=== PATIENT | female | born 1935 | race Caucasian/White ===

== ENCOUNTER 2017-03-23 10:17 | Emergency (ER) | payer MEDICARE, BC ==
[~2017-03-23] VITALS: Ht 157.5 cm; Wt 53.1 kg
[2017-03-23 10:20] VITALS: BP 122/56; PULSE 63; RESP 16; TEMP 97.7; O2SAT 97
[2017-03-23] MEDS ORDERED: CARV12.52 PO (10:50)
[2017-03-23] MEDS ORDERED: RAMI10CA PO (10:50)
[2017-03-23] MEDS ORDERED: FURO20TA PO (10:50)
[2017-03-23] MEDS ORDERED: ASPI-516 CHEW (10:50)
[2017-03-23] MEDS ORDERED: FAMO1TAB73 PO (10:50)
--- NOTE | 2017-03-23 11:31 | RADRPT ---
EXAM DATE/TIME: 03/23/2017 11:09 [place] COMPARISON: No previous studies available for comparison. INDICATIONS : Fall, right thumb pain. MEDICAL HISTORY : None. SURGICAL HISTORY : None. 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 Alignment anatomic. Fracture is not appreciated. CONCLUSION: Degenerative changes without fracture. Husam Mñuoz MD FACR on March 23, 2017 at 11:28 Board Certified Radiologist. This report was verified electronically.
--- NOTE | 2017-03-23 11:40 | PD ---
HPI Chief Complaint: Musculoskeletal Complaint Time Seen by Provider: 10:42 Travel History International Travel<30 days: No Contact w/Intl Traveler<30days: No Traveled to known affect area: No History of Present Illness HPI This is an 83-year-old female here with right thumb pain, swelling, ecchymosis after a trip and fall yesterday evening. Denies head injury or loss of consciousness. She reports decreased range of motion due to pain and swelling. Denies paresthesia or weakness of the digit. Symptoms severity is moderate. Aggravated by movement and relieved with rest. He denies any other injuries. No headache, neck pain, chest pain, shortness of breath, abdominal pain. PFSH Past Medical History Hx Anticoagulant Therapy: Yes (ASA 81MG DAILY) Congestive Heart Failure: Yes Hypertension: Yes Tetanus Vaccination: > 5 Years Influenza Vaccination: Yes ?: Not Menopausal: Yes Past Surgical History Cardiac Surgery: Yes (Defib) Eye Surgery: Yes Pacemaker: Yes (Defib) Social History Alcohol Use: No Tobacco Use: No Substance Use: No Allergies-Medications (Allergen,Severity, Reaction): Coded Allergies: No Known Allergies (Unverified , 03/23/17) Reported Meds & Prescriptions Reported Meds & Active Scripts Active Reported Pepcid (Famotidine) 40 Mg Tab 40 Mg PO HS Aspirin 81 Mg Chew 81 Mg CHEW DAILY Furosemide 20 Mg Tab 20 Mg PO DAILY Ramipril 10 Mg Cap 10 Mg PO DAILY Carvedilol 12.5 Mg Tab 12.5 Mg PO BID Review of Systems Except as stated in HPI: all other systems reviewed are Neg Physical Exam Narrative GENERAL: Alert and well-appearing 82-year-old female SKIN: Warm and dry. HEAD: Normocephalic. Atraumatic EYES: No injection or drainage. NECK: Supple, trachea midline. No cervical midline tenderness. CARDIOVASCULAR: Regular rate and rhythm RESPIRATORY: Breath sounds equal bilaterally. No accessory muscle use. GASTROINTESTINAL: Abdomen soft, non-tender, nondistended. MUSCULOSKELETAL: No cyanosis. Right upper extremity: Notable tenderness, swelling, ecchymosis to the entire right thumb. No deformity. There is a small abrasion to the nail fold medial aspect. No evidence of infection. Limited flexion due to swelling and pain. Normal sensation. Brisk cap refill. BACK: Nontender. No CVA tenderness. Data Data Last Documented VS Vital Signs Date Time Temp Pulse Resp B/P (MAP) Pulse Ox O2 Delivery O2 Flow Rate FiO2 03/23/17 10:20 97.7 63 16 122/56 (78) 97 Orders Orders Hand, Complete ([id number]) (03/23/17 ) Ed Discharge Order (03/23/17 11:40) Tetanus/Diphtheria Tox Adult (Tetanus/Di (03/23/17 11:45) Splint Or Brace Apply/Monitor (03/23/17 11:40) Fiberglass Thumb Spica Adult (03/23/17 ) MDM Medical Decision Making Medical Screen Exam Complete: Yes Emergency Medical Condition: Yes Differential Diagnosis Thumb fracture, sprain, dislocation Narrative Course This is an 83-year-old female here with right thumb pain, swelling, ecchymosis after a trip and fall yesterday evening. The digit is neurovascularly intact. She has a small abrasion to the lateral aspect of the nail. No evidence of infection. X-ray was negative for fracture and dislocation. Her tetanus immunization was updated. Finger splint applied. Wound care discussed. Patient is to follow up with her primary doctor and was also given a referral to hand surgeon should she have any complications. Diagnosis Primary Impression: Thumb sprain Qualified Codes: S63.601A - Unspecified sprain of right thumb, initial encounter Referrals: Lili Fabian MD Primary Care Physician Additional Instructions: Where the thumb splint daily for one week. Cleanse the wound with soap and water each day. Apply a thin layer of antibiotic ointment and redressed with a dry dressing. Tylenol or ibuprofen as needed for discomfort. Follow-up with her primary doctor for recheck. Disposition: 01 DISCHARGE HOME Condition: Stable Kavya Rodas Adam DREW Mar 23, 2017 11:40
[2017-03-23] MEDS ORDERED: TETANUS/DIPHTHERIA TOXOID ADULT 0.5 ML VIAL IM ONE (11:45)
== END 2017-03-23 11:56 | disposition home or self-care (01) ==
LOC: PHEFT 10:17
DX: S63.601A Unspecified sprain of right thumb, initial encounter (principal); I11.0 Hypertensive heart disease with heart failure; I50.9 Heart failure, unspecified; W01.0XXA Fall on same level from slipping, tripping and stumbling without subsequent striking against object, initial encounter; Z95.810 Presence of automatic (implantable) cardiac defibrillator; Z79.82 Long term (current) use of aspirin; Z79.899 Other long term (current) drug therapy
CPT/HCPCS: 73130; 99283; L3808; 29130